=== PATIENT | female | born 1970 | race Caucasian/White ===

== ENCOUNTER 2017-12-03 14:08 | Emergency (ER) | payer BC ==
[~2017-12-03] VITALS: Ht 165.1 cm; Wt 108.0 kg
[~2017-12-03 14:08] MED LIST: ASPIRIN81 M1 PO; CALAN SR,COVER240 MG PO; CYMBALTA20 MG PO; CYMBALTA60 MG PO; Calan SR,Covera HS,I PO; Carafate PO; DURAGESIC100 MCG TD; DURAGESIC75 MCG TD; Duragesic TD; FENTANYL1 EAC3 TD; GLUCOPHAGE1000 MG PO; LO-DOSE ASPIRIN81 M1 PO; LYRICA100 MG PO; LYRICA50 MG PO; METFORMIN HCL1000 MG PO; ONGLYZA5 MG PO; OXYCODONE HCL15 MG PO; OXYCONTIN15 MG PO; Oscal 500 w/Vitamin PO; PANTOPRAZOLE SO40 MG PO; PHENERGAN25 MG PR; PREDNISONE20 MG PO; PREDNISONE5 MG PO; PREDNISONE50 MG PO; PRILOSEC20 MG PO; PRILOSEC40 MG PO; PriLOSEC PO; Protonix PO; VERAPAMIL HCL240 MG PO; VERELAN 240 MG240 MG PO; WELCHOL625 MG PO; ZOFRAN ODT8 MG PO; ZOFRAN8 MG PO; oxyCODONE PO; predniSONE PO
[2017-12-03 16:15] LABS: ALBUMIN 3.5 g/dL (3.2-4.8); CHLORIDE 105 mEq/L (99-109); HEMATOCRIT 30.9 % (36.0-46.0); MCH 20.9 PG (29.0-34.0); MCHC 29.1 G/DL (30.0-36.0); MCV 71.7 FL (83-99); PLATELET COUNT 417 K/uL (156-360); POTASSIUM 3.7 mEq/L (3.7-5.4); RBC DIS.WIDTH-CV 16.4 % (11.8-14.6); RBC DIS.WIDTH-SD 42.9 % (39-53); RED BLOOD COUNT 4.31 M/uL (3.80-5.20); WHITE BLOOD COUNT 12.3 K/uL (4.1-10.2)
[2017-12-03 16:16] LABS: SODIUM 141 mEq/L (136-147)
[2017-12-03 16:18] LABS: GLUCOSE 136 mg/dL (70-99); TOTAL PROTEIN 6.9 g/dL (6.4-8.3)
[2017-12-03 16:20] LABS: TOTAL BILIRUBIN 0.2 mg/dL (0.0-1.0)
[2017-12-03 16:21] LABS: ALKALINE PHOSPHATASE 193 IU/L (3-129); CREATININE 0.8 mg/dL (0.6-1.3); GFR ESTIMATE (CALCULATED) > 59 mL/min/
[2017-12-03 16:23] LABS: AST (GOT) 39 IU/L (2-34); UREA NITROGEN (BUN) 10 mg/dL (9-23)
[2017-12-03 16:24] LABS: ALT (GPT) 53 IU/L (3-49)
[2017-12-03 16:25] LABS: LIPASE 19 U/L (1.0-51.0)
[2017-12-03 16:32] LABS: QUANTITATIVE HCG < 4.0 MIU/ML
[2017-12-03] MEDS ORDERED: ZOFRAN4 MG PO (17:57)
[2017-12-03 18:26] VITALS: BP 109/47
== END 2017-12-03 18:30 | disposition home or self-care (01) ==
LOC: EME 14:08
PROVIDERS: Emergency Medicine
DX: E86.0 Dehydration (principal); K52.9 Noninfective gastroenteritis and colitis, unspecified; B34.9 Viral infection, unspecified; R51 Headache; R00.2 Palpitations; R05 Cough; R74.8 Abnormal levels of other serum enzymes; I10 Essential (primary) hypertension; E11.9 Type 2 diabetes mellitus without complications; Z79.84 Long term (current) use of oral hypoglycemic drugs; Z86.73 Personal history of transient ischemic attack (TIA), and cerebral infarction without residual deficits; Z79.82 Long term (current) use of aspirin; Z79.52 Long term (current) use of systemic steroids
CPT/HCPCS: 80053; 81003; 83690; 84702; 85027; 99281; 99284; J2405; J7030